=== PATIENT | male | born 1995 | race Caucasian/White ===

== ENCOUNTER 2016-11-05 13:10 | Emergency (ER) | payer OTHER ==
[~2016-11-05] VITALS: Ht 195.6 cm; Wt 72.6 kg
--- NOTE | 2016-11-05 13:36 | NUR ---
PATIENT WAS SEEN BY MD FOR C/O COUGH AND FEELING ILL. DC, RX AND FOLLOW UP INSTRUCTIONS GIVEN AND EXPLAINED TO PATIENT WHO STATES HE UNDERTSTANDS ALL INSTRUCTIONS.
== END 2016-11-05 13:42 | disposition home or self-care (01) ==
LOC: ER 13:10
DX: J40 Bronchitis, not specified as acute or chronic (principal); Z88.6 Allergy status to analgesic agent
CPT/HCPCS: 99283; A4663